=== PATIENT | female | born 1980 | race Caucasian/White ===

== ENCOUNTER 2022-06-17 08:11 | Emergency (ER) | payer BC ==
[2022-06-17] MEDS ORDERED: Ipratropium/Albuterol 3 ML NEB ONE (09:00)
[2022-06-17] MEDS ORDERED: Dexamethasone 4 MG TAB ONE (09:00)
== END 2022-06-17 10:01 | disposition home or self-care (01) ==
LOC: MADERS 08:11
DX: J45.901 Unspecified asthma with (acute) exacerbation (principal); I10 Essential (primary) hypertension; F17.290 Nicotine dependence, other tobacco product, uncomplicated; Z79.899 Other long term (current) drug therapy
CPT/HCPCS: 71046; 87081; 87430; 87804; 94640; J7620; J8540

== ENCOUNTER 2022-11-03 00:39 | Emergency (ER) | payer BC, OTHER ==
[2022-11-03] MEDS ORDERED: Fluconazole 100 MG TAB ONE (01:23)
== END 2022-11-03 01:50 | disposition home or self-care (01) ==
LOC: MADERS 00:39
DX: B37.31 Acute candidiasis of vulva and vagina (principal); E78.5 Hyperlipidemia, unspecified; I10 Essential (primary) hypertension; F17.290 Nicotine dependence, other tobacco product, uncomplicated; Z79.899 Other long term (current) drug therapy
CPT/HCPCS: 99283

== ENCOUNTER 2023-05-27 09:57 | Emergency (ER) | payer BC, OTHER | END 2023-05-27 10:34 | disposition home or self-care (01) | LOC: MADERS 09:57 | DX: J30.2 Other seasonal allergic rhinitis (principal); E11.9 Type 2 diabetes mellitus without complications; I10 Essential (primary) hypertension; E78.5 Hyperlipidemia, unspecified; F17.290 Nicotine dependence, other tobacco product, uncomplicated; Z79.84 Long term (current) use of oral hypoglycemic drugs; Z79.899 Other long term (current) drug therapy | CPT/HCPCS: 99282 ==

== ENCOUNTER 2023-09-04 11:31 | Emergency (ER) | payer BC, OTHER, SELFPAY | END 2023-09-04 12:20 | disposition home or self-care (01) | LOC: MADERS 11:31 | DX: J30.9 Allergic rhinitis, unspecified (principal); F17.290 Nicotine dependence, other tobacco product, uncomplicated; I10 Essential (primary) hypertension | CPT/HCPCS: 87081; 87430; 99283 ==

== ENCOUNTER 2024-03-27 17:30 | Emergency (ER) | payer OTHER ==
[2024-03-27] MEDS ORDERED: Lidocaine Viscous Sol 2% 15 ml UD Cup ONE (17:35)
[2024-03-27] MEDS ORDERED: Mag-Al 1200 mg/1200 mg/30 ML UDCUP ONE (17:35)
[2024-03-27 17:57] LABS: #Basophils 0.1 thou/uL (0.0-0.2); #Eosinophils 0.4 thou/uL (0.0-0.7); #Lymphocytes 4.5 thou/uL (1.20-3.40); #Monocytes 0.8 thou/uL (0.11-0.59); #Neutrophils 3.7 thou/uL (1.40-6.50); %Basophils 1.2 % (0.0-1.0); %Eosinophils 4.6 % (0.0-10.0); %Lymphocytes 46.8 % (21.0-51.0); %Neutrophils 39.4 % (42.0-75.0); Hematocrit 37.9 % (36.0-47.0); Hemoglobin 12.2 g/dL (12.0-16.0); Mean Corpuscular HGB CONC 32.2 g/dL (32.0-36.0); Mean Corpuscular Hemoglobin 29.1 pg (27.0-31.0); Mean Corpuscular Volume 90.6 fl (78.0-98.0); Mean Platelet Volume 8.8 fL (7.4-10.4); Platelet Count 298 10x3/uL (130-400); RBC Distribution Width 11.9 % (11.5-14.5); Red Blood Cell (RBC) Count 4.18 mill/uL (4.20-5.40); White Blood Cell (WBC) Count 9.5 10x3/uL (4.8-10.8)
[2024-03-27 18:04] LABS: Pregnancy Test - Urine (BHCG) Negative (Negative); Pregu Control Background? CLEAR/WHITE (CLR/WHITE); Pregu Control Bar Appear? YES (CONTROL BAR); Specific Gravity 1.025 (1.002-1.036)
[2024-03-27 18:10] LABS: Troponin I 0.016 ng/mL (< 0.028)
[2024-03-27 18:12] LABS: ALT (SGPT) 39 U/L (8-55); AST (SGOT) 30 U/L (5-34); Albumin 4.1 g/dL (3.5-5.0); Alkaline Phosphatase 55 U/L (40-110); Anion Gap 13 mmol/L (10-20); BUN (Urea Nitrogen) 30 mg/dL (7.0-18.7); Bilirubin, Total 0.3 mg/dL (0.2-1.2); Calc. Creatinine Clearance 0 mL/min (70-130); Calcium 8.7 mg/dL (7.8-10.44); Carbon Dioxide 22 mmol/L (22-29); Chloride 105 mmol/L (98-107); Estimated GFR 53; Globulin 3.3 g/dL (2.4-3.5); Glucose 112 mg/dL (70-105); Lipase 33 U/L (8-78); Potassium 3.6 mmol/L (3.5-5.1); Protein, Total 7.4 g/dL (6.0-8.3); Sodium 136 mmol/L (136-145)
[2024-03-27] MEDS ORDERED: Lactated Ringer's 1,000 ML ONE (19:11)
[2024-03-27] MEDS ORDERED: Sucralfate 1 GM TAB ONE (19:11)
[2024-03-27] MEDS ORDERED: Famotidine/PF 20 mg/2ml Vial ONE (19:11)
[2024-03-27 20:05] LABS: Troponin I 0.013 ng/mL (< 0.028)
== END 2024-03-27 20:31 | disposition home or self-care (01) ==
LOC: MADERS 17:30
DX: R07.2 Precordial pain (principal); E11.9 Type 2 diabetes mellitus without complications; I10 Essential (primary) hypertension; F17.290 Nicotine dependence, other tobacco product, uncomplicated
CPT/HCPCS: 71046; 80053; 81025; 83690; 84484; 85025; 85379; 93005; 94760; 96361; 96374; J3490; J7120

== ENCOUNTER 2024-10-17 12:07 | Emergency (ER) | payer BC, SELFPAY | END 2024-10-17 12:39 | disposition home or self-care (01) | LOC: MADERS 12:07 | DX: J06.9 Acute upper respiratory infection, unspecified (principal); I10 Essential (primary) hypertension; E11.9 Type 2 diabetes mellitus without complications; E78.5 Hyperlipidemia, unspecified; I25.2 Old myocardial infarction; F17.290 Nicotine dependence, other tobacco product, uncomplicated; Z79.899 Other long term (current) drug therapy | CPT/HCPCS: 99283 ==